=== PATIENT | female | born 1970 | race Asian ===

== ENCOUNTER 2017-11-26 18:38 | Emergency (ER) | payer OTHER ==
[~2017-11-26] VITALS: Ht 149.9 cm; Wt 57.4 kg
[~2017-11-26 18:38] MED LIST: BENICAR HCT1 TA1 PO; FLEXERIL10 MG PO; METOPROLOL TART25 M1 PO; NITROSTAT0.4 MG SL
[2017-11-26 18:46] VITALS: Ht 149.9 cm; Wt 57.4 kg
[2017-11-26 20:04] LABS: UA SPECIFIC GRAVITY 1.015 (1.005-1.035); microscopic required? YES; urine erythrocyte NEGATIVE (NEGATIVE)
[2017-11-26 20:37] VITALS: BP 161/97
== END 2017-11-26 20:37 | disposition home or self-care (01) ==
LOC: ED 18:38
PROVIDERS: Emergency Medicine
DX: G44.209 Tension-type headache, unspecified, not intractable (principal); N39.0 Urinary tract infection, site not specified; M62.830 Muscle spasm of back; M54.2 Cervicalgia; I10 Essential (primary) hypertension; E78.00 Pure hypercholesterolemia, unspecified